=== PATIENT | male | born 1995 | race Asian ===

== ENCOUNTER → 2019-07-14 | Outpatient (CLI) | payer OTHER ==
--- NOTE | 2019-07-14 14:49 | Diagnostic Imaging Report ---
EXAMINATION: Lumbar spine at 2:25 p.m. INDICATION: Fell, back pain. AP, lateral and spot lateral views were obtained. COMPARISON: There are no prior studies available for comparison. FINDINGS: The lateral view shows the lumbar vertebral body heights and alignment to be within normal limits. The intervertebral disc spaces are fairly well-maintained. There is no fracture or acute bony abnormality evident. However, there does seem to be an offset of the ventral cortex of the vertebral body of S2. I am concerned that this could represent a nondisplaced impaction fracture related to the patient's fall 4 days ago. I would recommend that CT be performed for further evaluation. There is no sign of a paraspinal mass. The sacroiliac joints are symmetrical and within normal limits. IMPRESSION: 1. There is no evidence for an acute bony abnormality of the lumbar spine. However, there does appear to be a fracture of S2. Recommendations as above. 2. These results were discussed with Dr. Mackenzie. Dictated by: Dictated on workstation # [id number]
== END ==
LOC: RAD 14:08
PROVIDERS: ATTEND Nurse Practitioner Family
DX: S39.92XA Unspecified injury of lower back, initial encounter (principal); W19.XXXA Unspecified fall, initial encounter
CPT/HCPCS: 72100

== ENCOUNTER → 2019-07-19 | Outpatient (CLI) | payer OTHER ==
--- NOTE | 2019-07-19 15:09 | Diagnostic Imaging Report ---
PROCEDURE: CT lumbar spine without contrast. TECHNIQUE: Multiple contiguous axial images were obtained through the lumbar spine without the use of intravenous contrast. Sagittal and coronal reformations were then performed. Auto Exposure Controls were utilized during the CT exam to meet ALARA standards for radiation dose reduction. INDICATION: Sacral fracture. FINDINGS: The lumbar spinal curvature and alignment are unremarkable. The vertebral body heights and disc spaces are maintained. There is focal lucency involving the posterior cortex of what appears to be S1 seen at table location -315. This is seen on a single cut only. The possibility of a nondisplaced fracture is not fully excluded. Otherwise, no fracture or malalignment is identified and there is no evidence of significant hematoma. IMPRESSION: Questionable nondisplaced cortical disruption at the S1 level. This does not have the appearance of an unstable fracture and no significant hemorrhage is seen. Otherwise, no acute abnormality is identified. Dictated by: Dictated on workstation # [id number]
== END ==
LOC: RAD 14:34
PROVIDERS: ATTEND Nurse Practitioner Family
DX: S32.10XA Unspecified fracture of sacrum, initial encounter for closed fracture (principal)
CPT/HCPCS: 72131